=== PATIENT | female | born 1950 | race Caucasian/White ===

== ENCOUNTER 2019-12-03 08:48 | Outpatient (CLI) | payer MEDICARE, OTHER, SELFPAY ==
--- NOTE | 2019-12-03 08:55 | MM_ITS ---
WS: [id number] BILATERAL DIGITAL SCREENING MAMMOGRAM WITH CAD CLINICAL INFORMATION: SCREENING HISTORY: Screening mammogram. No current complaints. COMPARISON: TECHNIQUE: Bilateral CC and MLO views. FINDINGS: Fatty-replaced breasts bilaterally. No suspicious focal mass, asymmetry, calcifications, or performance architect ural distortion. No evidence of malignancy. Stable incidental intramammary lymph nodes. MM/[place] [id number] IMPRESSION: BI-RADS: 2-Benign FOLLOW UP: 1 Year Follow-up Recommend return to annual screening mammography.
== END 2019-12-03 08:49 | disposition home or self-care (01) ==
LOC: RADSHAW 08:53
PROVIDERS: PCP Internal Medicine; Visit Provider Internal Medicine
DX: Z12.31 Encounter for screening mammogram for malignant neoplasm of breast (principal)
CPT/HCPCS: 77067

== ENCOUNTER 2022-03-06 20:34 | Emergency (ER) | payer MEDICARE, OTHER, SELFPAY ==
[2022-03-06 20:40] VITALS: BP 182/124; PULSE 97; RESP 18; TEMP 36.5; O2SAT 98; BMI 39.6
[2022-03-06 21:34] VITALS: BP 182/124; PULSE 97; RESP 18; O2SAT 98
--- NOTE | 2022-03-06 21:52 | W.ED.WOUNDLC ---
HPI - Wound/Laceration General: Chief Complaint: Wound/Laceration Stated Complaint: Right hand finger lac Time Seen by Provider: 03/06/22 21:32 History of Present Illness: Patient is a 71-year-old female comes to the ED with right finger laceration. Injury occurred just prior to arrival. She states that she caught her third finger on right hand and storm door causing laceration. Denies any smash or crush injury to finger. Patient is on blood thinners and had trouble getting bleeding controlled. She has had tetanus within the last 5 years. Associated symptoms: Denies chills, fever(s), nausea or vomiting Review of Systems Const: Denies: fever(s), chills or fatigue Eyes: Denies: change in vision or eye discomfort ENMT: Denies: throat pain, odynophagia, nasal discharge or nasal congestion Card: Denies: chest pain, palpitations, edema, swelling of feet/ankles, dyspnea on exertion or orthopnea Resp: Denies: dyspnea, productive cough or non-productive cough GI: Denies: abdominal pain, nausea, vomiting, diarrhea, constipation or hematochezia : Denies: flank pain, dysuria or hematuria Musc: Denies: neck pain, back pain or extremity swelling Skin/Breast: Reports: new lesions (Small flap-like laceration on right hand third digit); Denies: rash Neuro: Denies: headache(s), numbness in extremities or weakness in extremities PFS ED PFSH: Medical History Atrial fibrillation Essential hypertension Surgical History S/P cholecystectomy Physical Exam Const: COMMON NORMALS: no acute distress, patient oriented x3 and alert GENERAL APPEARANCE: cooperative and comfortable HENMT: COMMON NORMALS: normocephalic HEAD & SCALP: normocephalic MOUTH: Normal oral and palatal mucosa present THROAT: posterior oropharynx normal and uvula midline Neck/C-Spine: COMMON NORMALS: supple GENERAL: Yes normal visual inspection Resp: COMMON NORMALS: normal respiratory effort, No retractions, No use of accessory muscles and clear to auscultation bilaterally AUSCULTATION: clear to auscultation bilaterally Cardio: COMMON NORMALS: regular rate, regular rhythm, S1 normal heart sound present, S2 normal heart sound present, No gallops present (Cardio), No clicks present (Cardio), No murmurs present (Cardio) and Peripheral pulses 2+ throughout RATE: regular rate RHYTHM: regular rhythm HEART SOUNDS: S1 normal heart sound present and S2 normal heart sound present PERIPHERAL PULSES: Peripheral pulses 2+ throughout GI: COMMON NORMALS: Normal to inspection, nondistended, normoactive bowel sounds present, Soft to palpation, non-tender and no masses PALPATION: Yes Soft to palpation : COMMON NORMALS: Yes no CVA tenderness BLADDER/KIDNEY EXAM: Yes no CVA tenderness Back/Pelvis: COMMON NORMALS: no CVA tenderness Extremity: NARRATIVE EXTREMITY EXAM: Right hand?third digit. Distal pad 1 cm superficial flap-like laceration. No nailbed or nail damage noted. Neuro: COMMON NORMALS: patient oriented x3 SENSORIUM/ORIENTATION: Yes alert GAIT: Yes Normal gait present Skin: GENERAL SKIN EXAM: dry skin Procedures Laceration Laceration 1: Site: hand (Third digit) Side (If applicable): right Size (cm): 1 Description: flap and clean Depth: simple, single layer Pre-repair: irrigated extensively (Irrigated extensively with normal saline) Skin layer closed with: other (Dermabond) Technique: other (Dermabond) Course Vital Signs: Vital signs: Vital Signs Temperature 97.7 F 03/06/22 20:40 Pulse Rate 95 03/06/22 22:30 Respiratory Rate 18 03/06/22 22:30 Blood Pressure 178/100 03/06/22 22:30 Pulse Oximetry 98 03/06/22 21:34 Oxygen Delivery Me thod 03/06/22 21:34 MDM - Wound/Laceration Medical Decision Making pt is a 71-year-old female comes to the ED with flap-like laceration to distal pad of third digit on right hand. Bleeding is controlled. Finger was irrigated with normal saline and then Dermabond was used to close laceration. Patient tolerated procedure well. She was stable for discharge home and told to follow-up with PCP in the next week for reevaluation. She was instructed on how to care for laceration site. Patient understood and agreed with plan. Discharge Plan Discharge Patient Disposition: Home Clinical Impression: Finger laceration Qualifiers: Encounter type: initial encounter Finger: unspecified finger Damage to nail status: without damage Foreign body presence: without foreign body Laterality: right Qualified Code(s): S61.219A - Laceration without foreign body of unspecified finger without damage to nail, initial encounter Condition: Stable Prescriptions: No Action atorvastatin 10 mg tablet 10 mg PO QDAY omeprazole 20 mg tablet,delayed release (DR/EC) 20 mg PO QDAY Eliquis 5 mg tablet 5 mg PO BID metoprolol tartrate 50 mg tablet 25 mg PO BID ibuprofen [IBU-200] 200 mg tablet 200 mg PO Q6H PRN Discharge Orders: Discharge ED (Routine); Ordered 03/06/22 Ordered By: Fred Farris Referrals: Nic Lyn DO [Primary Care Provider] - Discharge Diet: Regular Discharge Activity: Limit activity as instructed Patient Instructions: Finger Laceration (ED) Activity Restrictions/Additional Instructions: Keep laceration site clean and dry. Clean daily with soap and water and then apply thin layer of triple antibiotic ointment on it and cover with bandage. Watch for signs of infection such as redness, warmth, increased tenderness and puslike drainage. If you see the signs of infection return to the ED, urgent care or PCP for reevaluation. call your PCP to schedule a follow-up appointment for reevaluation in about 7-10 days. Continue taking all home meds. Follow discharge plans as discussed. You can return to the ED if symptoms worsen. Coding Level of Care Code ED Microfilm Machine Operator for Manny Ortiz Exam Comprehensive
[2022-03-06 22:30] VITALS: BP 178/100; PULSE 95; RESP 18
== END 2022-03-06 22:32 | disposition home or self-care (01) ==
PROVIDERS: Emergency Provider Physician Assistant; PCP Internal Medicine
DX: S61.212A Laceration without foreign body of right middle finger without damage to nail, initial encounter (principal); Z79.01 Long term (current) use of anticoagulants; I10 Essential (primary) hypertension; W23.0XXA Caught, crushed, jammed, or pinched between moving objects, initial encounter
CPT/HCPCS: 12001; 99282

== ENCOUNTER 2022-10-14 17:46 | Emergency (ER) | payer MEDICARE, OTHER, SELFPAY ==
[2022-10-14 17:51] VITALS: BP 130/96; PULSE 135; RESP 16; TEMP 36.7; O2SAT 94
--- NOTE | 2022-10-14 18:07 | XRR_ITS ---
PROCEDURE INFORMATION: Exam: XR Left Knee Exam date and time: 10/14/2022 6:24 PM Age: 72 years old Clinical indication: Pain; Knee; Left; Additional info: Pain S/P fall TECHNIQUE: Imaging protocol: Radiologic exam of the left knee. Views: 3 views. COMPARISON: No relevant prior studies available. FINDINGS: Bones/joints: Intact left total knee arthroplasty noted in expected alignment. Negative for fracture. Soft tissues: Normal. XR/XR knee LT 3V* [id number] IMPRESSION: No acute findings.
--- NOTE | 2022-10-14 18:07 | XRR_ITS ---
PROCEDURE INFORMATION: Exam: XR Thoracic Spine Exam date and time: 10/14/2022 6:28 PM Age: 72 years old Clinical indication: Pain in thoracic spine; Additional info: Pain S/P fall TECHNIQUE: Imaging protocol: Radiologic exam of the thoracic spine. Views: 3 views. COMPARISON: CR XR chest 1V [id number] 01/30/2016 11:40 AM FINDINGS: Bones/joints: No acute fracture. Normal alignment. Soft tissues: Unremarkable. Heart/Mediastinum: Hiatal hernia noted. XR/XR thoracic spine 3V* [id number] IMPRESSION: No acute findings.
--- NOTE | 2022-10-14 18:07 | XRR_ITS ---
PROCEDURE INFORMATION: Exam: XR Right Finger(s) Exam date and time: 10/14/2022 6:18 PM Age: 72 years old Clinical indication: Pain; Finger(s); Right; Additional info: Pain and swelling index finger S/P fall TECHNIQUE: Imaging protocol: Radiologic exam of the right fingers. Views: Minimum 2 views. COMPARISON: No relevant prior studies available. FINDINGS: Bones/joints: Osseous structures are intact. Negative for fracture. Soft tissues: Soft tissue swelling around the 2nd digit. XR/XR finger RT min 2V [id number] IMPRESSION: No acute findings.
--- NOTE | 2022-10-14 18:07 | XRR_ITS ---
PROCEDURE INFORMATION: Exam: XR Right Tibia and Fibula Exam date and time: 10/14/2022 6:18 PM Age: 72 years old Clinical indication: Pain; Lower leg; Right; Additional info: Pain S/P fall TECHNIQUE: Imaging protocol: Radiologic exam of the right tibia and fibula. Views: 2 views. COMPARISON: No relevant prior studies available. FINDINGS: Bones/joints: Tibia and fibula are intact. Negative for fracture. Soft tissues: Normal. XR/XR tibia fibula RT 2V [id number] IMPRESSION: No acute findings.
--- NOTE | 2022-10-14 18:07 | XRR_ITS ---
PROCEDURE INFORMATION: Exam: XR Right Knee Exam date and time: 10/14/2022 6:22 PM Age: 72 years old Clinical indication: Pain; Knee; Right; Prior surgery; Surgery date: 6+ months; Surgery type: Tka; Additional info: Pain S/P fall TECHNIQUE: Imaging protocol: Radiologic exam of the right knee. Views: 3 views. COMPARISON: CR (LOW EXM, ) 10/14/2022 6:18 PM FINDINGS: Bones/joints: Intact right total knee arthroplasty noted in expected alignment. Negative for fracture. Soft tissues: Normal. XR/XR knee RT 3V* [id number] IMPRESSION: No acute findings.
[2022-10-14 18:08] VITALS: BP 154/106; PULSE 132; RESP 19; O2SAT 93
[2022-10-14] MEDS: metoprolol tartrate 25 mg Tablet PO (18:14)
[2022-10-14 18:30] VITALS: BP 169/121; PULSE 131; RESP 16; O2SAT 95
--- NOTE | 2022-10-14 19:22 | ED_ITS ---
HPI - Fall General: Chief Complaint: Fall Stated Complaint: fall Time Seen by Provider: 10/14/22 18:00 History of Present Illness: Patient is in today after a fall. She reports that she was walking tripped over a rug fell mostly onto her right side on the floor. She reports that she then was able to crawl to a chair and help herself up. She denies hitting her head. She denies loss of consciousness. She states that she hurts all over but mostly her right index finger, both knees, mid back. She states that her right index finger was deformed and she popped it back in place. She states that she has a history of bilateral knee replacements with a neha in her right leg. She states that she does have a history of A-fib and is on blood thinners but did not hit her head. She reports that she is due for her evening metoprolol dose and that is why her heart rate is a little bit high Associated symptoms-after fall: Denies abdominal pain, chest pain, confusion, headache(s) or vertigo Review of Systems Const: Denies: fever(s) or chills Card: Reports: irregular heart rhythm (History of A-fib); Denies: chest pain or palpitations Resp: Denies: dyspnea, productive cough or non-productive cough GI: Denies: abdominal pain, nausea or vomiting : Denies: flank pain, difficulty voiding or dysuria Musc: Reports: back pain, extremity pain and joint pain Neuro: Denies: headache(s), numbness in extremities, weakness in extremities, lack of coordination, dizziness, vertigo or confusion [facility] ED PFSH: Medical History Atrial fibrillation Essential hypertension Surgical History S/P cholecystectomy Physical Exam Const: COMMON NORMALS: patient oriented x3 OTHER: Patient is in no acute distress sitting in the bed. Eye: COMMON NORMALS: Equal, round and reactive pupils present, EOMs intact bilaterally and conjunctivae normal CONJUNCTIVA: Yes conjunctivae normal PUPIL: Yes Equal, round and reactive pupils present Neck/C-Spine: COMMON NORMALS: full ROM, no lymphadenopathy, supple and no JVD Resp: COMMON NORMALS: normal respiratory effort, No use of accessory muscles and clear to auscultation bilaterally AUSCULTATION: clear to auscultation bilaterally Cardio: COMMON NORMALS: no JVD RATE: tachycardic RHYTHM: abnormal rhythm irregularly irregular GI: COMMON NORMALS: Normal to inspection, nondistended, normoactive bowel sounds present, Soft to palpation, non-tender, No hepatosplenomegaly present and no masses PALPATION: Yes Soft to palpation and Yes No hepatosplenomegaly present : COMMON NORMALS: Yes no CVA tenderness BLADDER/KIDNEY EXAM: Yes no CVA tenderness Back/Pelvis: COMMON NORMALS: no CVA tenderness THORACIC SPINE/UPPER BACK: Yes normal to inspection, Yes thoracic ROM normal and Yes paraspinal muscle tenderness Thoracic paraspinal muscle tenderness: right Extremity: NARRATIVE EXTREMITY EXAM: Right lower extremity lateral calf there is some swelling noted. Palpation of this region is consistent with a hematoma. Patient reports that that is new since the fall just prior to arrival. She denies that she had that swelling or pain prior to the fall. Neuro: COMMON NORMALS: patient oriented x3, CN's II-XII intact bilaterally, moves all extremities, no focal motor deficits and no sensory deficits noted Course Vital Signs: Vital signs: Vital Signs Temperature 98.1 F 10/14/22 17:51 Pulse Rate 131 H 10/14/22 18:30 Respiratory Rate 16 10/14/22 18:30 Blood Pressure 169/121 10/14/22 18:30 Pulse Oximetry 95 10/14/22 18:30 Oxygen Delivery Me thod Room Air 10/14/22 18:30 MDM - Fall Medical Decision Making Patient is in after a fall. She denies hitting her head. She is on blood thinning medications. X-ray of her finger, bilateral knees, right tib-fib, thoracic spine all are negative for any acute findings. We will go ahead and splint the patient's finger to provide comfort and stability for the next couple of days. Encouraged her to treat with conservative measures at home including ice, rest, elevation. Patient's heart rate was irregular and elevated in ER today. She denies feeling any chest pain or abnormalities. She states that she is due for her metoprolol when she arrived here. Her metoprolol dose was administered here. Discharge patient home in stable condition. Advised her to follow-up with her primary care provider. Return to the ER for any new or worsening symptoms. Lab Data Radiology Impressions Finger X-Ray 10/14/22 18:07 IMPRESSION: No acute findings. Knee X-Ray 10/14/22 18:07 IMPRESSION: No acute findings. Thoracic Spine X-Ray 10/14/22 18:07 IMPRESSION: No acute findings. Tibia/Fibula X-Ray 10/14/22 18:07 IMPRESSION: No acute findings. Discharge Plan Discharge Patient Disposition: Home Clinical Impression: Fall Qualifiers: Encounter type: initial encounter Qualified Code(s): W19.XXXA - Unspecified fall, initial encounter Contusion of lower leg, right Qualifiers: Encounter type: initial encounter Qualified Code(s): S80.11XA - Contusion of right lower leg, initial encounter Contusion of finger Qualifiers: Encounter type: initial encounter Finger: index finger Damage to nail status: without damage Laterality: right Qualified Code(s): S60.021A - Contusion of right index finger without damage to nail, initial encounter Condition: Stable Prescriptions: No Action atorvastatin 10 mg tablet 10 mg PO QDAY omeprazole 20 mg tablet,delayed release (DR/EC) 20 mg PO QDAY Eliquis 5 mg tablet 5 mg PO BID metoprolol tartrate 50 mg tablet 25 mg PO BID ibuprofen [IBU-200] 200 mg tablet 200 mg PO Q6H PRN Discharge Orders: Discharge ED (Routine); Ordered 10/14/22 Ordered By: Kary Lewis Referrals: Nic Lyn DO [Primary Care Provider] - Discharge Diet: Usual diet Discharge Activity: Increase activity as tolerated Patient Instructions: Knee Pain (ED), Fall Prevention Activity Restrictions/Additional Instructions: I do not see any acute fractures on the x-rays taken today. Still awaiting radiologist review. May utilize finger splint for the next few days to provide extra support and comfort for the finger. Ice, rest, elevate knees and also hand. Follow-up with primary care provider. Return to the ER as needed for new or worsening symptoms. You did have your evening dose of metoprolol tonight so do not take an additional 1 when you get home. You still need all other evening medicines Coding Level of Care Code ED Drill Punch Operator for Manny Ortiz
[2022-10-14 19:27] VITALS: PULSE 115; O2SAT 96
== END 2022-10-14 19:29 | disposition home or self-care (01) ==
PROVIDERS: Emergency Provider Nurse Practitioner Family; PCP Internal Medicine
DX: S80.11XA Contusion of right lower leg, initial encounter (principal); S60.021A Contusion of right index finger without damage to nail, initial encounter; Z79.01 Long term (current) use of anticoagulants; I10 Essential (primary) hypertension; W18.09XA Striking against other object with subsequent fall, initial encounter
CPT/HCPCS: 72072; 73140; 73562; 73590; 99284

== ENCOUNTER → 2023-09-27 08:01 | Outpatient (BNVA) | payer MEDICARE, SELFPAY | PROVIDERS: PCP Internal Medicine; Visit Provider Nurse Practitioner Family | DX: L57.0 Actinic keratosis (principal); L82.1 Other seborrheic keratosis; D22.5 Melanocytic nevi of trunk; L81.4 Other melanin hyperpigmentation; L57.8 Other skin changes due to chronic exposure to nonionizing radiation | CPT/HCPCS: 99204 ==

== ENCOUNTER → 2023-10-11 08:17 | Outpatient (BNVA) | payer MEDICARE, SELFPAY | PROVIDERS: PCP Internal Medicine; Visit Provider Nurse Practitioner Family | DX: L57.0 Actinic keratosis (principal); L82.1 Other seborrheic keratosis; D22.5 Melanocytic nevi of trunk; L81.4 Other melanin hyperpigmentation; L57.8 Other skin changes due to chronic exposure to nonionizing radiation | CPT/HCPCS: 17000; 17110; 99213 ==

== ENCOUNTER 2024-05-30 07:37 | Emergency (ER) | payer MEDICARE, SELFPAY ==
[2024-05-30 07:46] VITALS: BP 139/80; PULSE 119; RESP 16; TEMP 36.7; O2SAT 95; BMI 39.6
[2024-05-30] MEDS: tetanus-dipt-pertussis 0.5 mL SDV IM (08:42)
--- NOTE | 2024-05-30 08:43 | ED_ITS ---
HPI - Burn/Smoke Inhalation General: Chief complaint: Burn/Smoke Inhalation Stated complaint: chemical burn Time Seen by Provider: 05/30/24 07:42 History of Present Illness: 74-year-old female presents emergency ro om with swelling of her forehead and her scalp and on the left upper eyelid. She had a reaction to some hair product used to give her perm. She was seen earlier in the week started on steroids that she still has some discomfort in the eye. She done a difficulty breathing Associated symptoms: Deny chest pain, fever(s) or neck pain Related Data Home Medications Medication Instructions Recorded Confirmed apixaban 5 mg tablet (Eliquis) 5 mg PO BID 06/20/19 07/15/23 atorvastatin 10 mg tablet 10 mg PO QDAY 06/20/19 07/15/23 ibuprofen 200 mg tablet (IBU-200) 200 mg PO Q6H PRN 06/20/19 07/15/23 metoprolol tartrate 50 mg tablet 25 mg PO BID 06/20/19 07/15/23 omeprazole 20 mg tablet,delayed 20 mg PO QDAY 06/20/19 07/15/23 release cholecalciferol (vitamin D3) 25 25 mcg PO DAILY 07/15/23 07/15/23 mcg (1,000 unit) capsule Previous Rx's Medication Instructions Recorded benzonatate 100 mg capsule 100 mg PO TID PRN cough #20 caps 07/15/23 loratadine 10 mg tablet 10 mg PO DAILY PRN post nasal drip 07/15/23 30 days #30 tabs cetirizine 10 mg tablet 10 mg PO BID #30 tabs 05/30/24 ketorolac 0.5 % eye drops 1 drp ophthalmic (eye) Q6H 5 days 05/30/24 #10 mL olopatadine 0.1 % eye drops 1 drp ophthalmic (eye) BID 10 days 05/30/24 (Pataday Twice Daily Relief) #5 mL Allergies Allergy/AdvReac Type Severity Reaction Status Date / Time codeine Allergy Unknown Unknown Unverified 07/15/23 09:36 Review of Systems Const: Denies: fever(s) or chills Card: Denies: chest pain Resp: Denies: dyspnea GI: Denies: abdominal pain : Denies: dysuria, urinary frequency or urinary urgency Musc: Denies: neck pain or back pain Skin/Breast: Denies: rash [facility] ED PFSH: Medical History Nasal sinus congestion Hx pulmonary embolism Multinodular thyroid Dyslipidemia Cough Atrial fibrillation Essential hypertension Surgical History S/P tonsillectomy S/P meniscectomy S/P cholecystectomy Physical Exam Const: COMMON NORMALS: no acute distress GENERAL APPEARANCE: cooperative and comfortable ORIENTATION/CONSCIOUSNESS: Yes awake, Yes oriented to person, Yes oriented to place and Yes oriented to time HENMT: COMMON NORMALS: normocephalic, atraumatic and hearing grossly normal bilaterally HEAD & SCALP: normocephalic and atraumatic Resp: COMMON NORMALS: normal respiratory effort, No retractions, No use of accessory muscles and clear to auscultation bilaterally AUSCULTATION: clear to auscultation bilaterally Cardio: COMMON NORMALS: regular rate, regular rhythm and No murmurs present (Cardio) RATE: regular rate RHYTHM: regular rhythm GI: COMMON NORMALS: Soft to palpation and No hepatosplenomegaly present AUSCULTATION: Yes normoactive bowel sounds PALPATION: Yes Soft to palpation, No Tenderness to palpation present (GI), No Guarding due to palpation present (GI) and Yes No hepatosplenomegaly present Extremity: COMMON NORMALS: normal to inspection, capillary refill normal, no clubbing, cyanosis or edema, no calf tenderness and no pedal edema Neuro: SENSORIUM/ORIENTATION: Yes oriented to person, Yes oriented to place and Yes oriented to time Skin: OTHER: Contact dermatitis rash rhythm scaling skin across the forehead left upper and lower eyelid and across the scalp none anywhere else on the body or extremity no vesicular changes mild erythema Course Vital Signs: Vital signs: Vital Signs Temperature 98.0 F 05/30/24 07:46 Pulse Rate 97 05/30/24 09:18 Respiratory Rate 16 05/30/24 07:46 Blood Pressure 158/82 05/30/24 09:18 Pulse Oximetry 98 05/30/24 09:18 Oxygen Delivery Me thod Room Air 05/30/24 07:46 MDM - Burn/Smoke Inhalation Medical Decision Making Continue steroid taper previously given start cetirizine 10 mg twice daily use olopatadine and ketorolac as needed in the eyes. If not improving follow-up with primary care No radiology studies performed this visit Discharge Plan Discharge Patient Disposition: Home Clinical Impression: Contact dermatitis Condition: Stable Prescriptions: New cetirizine 10 mg tablet 10 mg PO BID Qty: 30 0RF ketorolac 0.5 % drops 1 drp ophthalmic (eye) Q6H 5 Days Qty: 10 0RF olopatadine [Pataday Twice Daily Relief] 0.1 % drops 1 drp ophthalmic (eye) BID 10 Days Qty: 5 0RF Rx Instructions: separate doses by at least 6-8 hours No Action atorvastatin 10 mg tablet 10 mg PO QDAY omeprazole 20 mg tablet,delayed release (DR/EC) 20 mg PO QDAY Eliquis 5 mg tablet 5 mg PO BID metoprolol tartrate 50 mg tablet 25 mg PO BID ibuprofen [IBU-200] 200 mg tablet 200 mg PO Q6H PRN cholecalciferol (vitamin D3) 25 mcg (1,000 unit) capsule 25 mcg PO DAILY benzonatate 100 mg capsule 100 mg PO TID PRN (Reason: cough) Qty: 20 0RF loratadine 10 mg tablet 10 mg PO DAILY PRN (Reason: post nasal drip) 30 Days Qty: 30 0RF Discharge Orders: Discharge ED (Routine); Ordered 05/30/24 Ordered By: Dionisio Ahumada Referrals: Nic Lyn DO [Primary Care Provider] - Discharge Diet: Usual diet Discharge Activity: Resume usual activity Patient Instructions: Opioid Safety, Pain Management Activity Restrictions/Additional Instructions: Thank you for choosing [facility] for your healthcare needs today. It is very important that you follow up as instructed or that you return to the Emergency Department should you have concerns or if your condition changes or worsens in any way. You were seen in the emergency room for a contact dermatitis chemical irritant from hair product. Recommend you complete the steroid taper that you were given additionally recommended starting the cetirizine 1 tablet twice a day. You can use the ketorolac and the olopatadine drops as prescribed. If worsens or changes follow-up with your primary care doctor. Coding Level of Care Code ED Industrial Service Technician for Manny Ortiz
[2024-05-30 09:18] VITALS: BP 158/82; PULSE 97; O2SAT 98
== END 2024-05-30 09:24 | disposition home or self-care (01) ==
PROVIDERS: Emergency Provider Family Medicine; PCP Internal Medicine
DX: L25.9 Unspecified contact dermatitis, unspecified cause (principal); Z79.01 Long term (current) use of anticoagulants; E78.5 Hyperlipidemia, unspecified; I10 Essential (primary) hypertension
CPT/HCPCS: 90471; 90715; 99283

== ENCOUNTER 2024-12-04 16:12 | Emergency (ER) | payer MEDICARE, SELFPAY ==
[2024-12-04 16:15] VITALS: BP 150/90; PULSE 105; TEMP 36.7; O2SAT 99
--- OUTSIDE RECORDS SUMMARY | 2024-12-04 16:17 | XMS_ITS | Clinical Summary ---
Author Organization [facility] Address [address] [place] [address] Care Team Providers Care Hydraulic Mechanic Name Role Phone Nic Lyn DO Primary Care Provide r Allergies Active Allergy Reactions Criticality Noted Date Comments Codeine Rash,Itching High 08/25/2020 Medications metoprolol tartrate (LOPRESSOR) 50 mg tablet Take 50 mg by mouth 2 times daily. Active omeprazole (PriLOSEC) 20 mg Tablet, Delayed Release (E.C.) Take by mouth daily before breakfast. Active apixaban (Eliquis) 5 mg tablet Take by mouth 2 times daily. Active atorvastatin (LIPITOR) 10 mg tablet Take 10 mg by mouth daily. Active vit C/vit E ac/lut/copper/zi nc (PRESERVISION LUTEIN ORAL) Take 1 Tablet by mouth daily. Active docusate sodium (Colace) 100 mg capsule Take 1 Capsule (100 mg) by mouth 2 times daily. 60 Capsule 11/25/2020 Active tiZANidine (ZANAFLEX) 4 mg Tablet Take 1 Tablet (4 mg) by mouth every 6 hours as needed for Spasm. 30 Tablet 11/25/2020 Active oxyCODONE (ROXICODONE) 5 mg tabletIndication s:Status post total right knee replacement Take 1-2 Tablets (5-10 mg) by mouth every 4 hours as needed for Pain. Maximum of 6 per day. Max Daily Amount: 30 mg 42 Tablet 11/26/2020 1:27 PM CDT 11/26/2020 Active traMADoL (ULTRAM) 50 mg tabletIndication s:Status post total right knee replacement Take 1 tablet by mouth every 6 hours as needed for pain. Maximum of 4 per day. 28 Tablet 11/26/2020 Active Active Problems Problem Noted Date Diagnosed Date Preoperative general physical examination 2020 GERD (gastroesophageal reflux disease) Status post total right knee replacement - 202011/05/2020 AF (atrial fibrillation) 11/05/2020 History of pulmonary embolism 2015 11/05/2020 Overview (11/05/2020): Following knee surgery Essential hypertension 11/05/2020 Dyslipidemia 11/05/2020 Severe obesity (BMI 35.0-39.9) with comorbidity 11/05/2020 Personal history of DVT (deep vein thrombosis) 2 015 11/05/2020 Overview (11/05/2020): Following knee surgery Hyperkalemia 11/05/2020 Elevated serum creatinine 11/05/2020 Family History Medical History Relation Name Comments Diabetes Brother Healthy Daughter Heart Disease Father Hypertension Mother Healthy Son Relation Name Status Comments Brother Alive Daughter Alive Father Mother Alive Son Alive Social History Tobacco Use Types Packs/Day Years Used Date Smoking Tobacco: Never Smokeless Tobacco: Never Alcohol Use Standard Drinks/Week Comments Never 0 (1 standard drink = 0.6 oz pur e alcohol) Comments Unknown Sex and Gender Information Value Date Recorded Sex Assigned at Not on file 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 Gender Identity Not on file Sexual Orientation Not on file Last Filed Vital Signs Vital Sign Reading Time Taken Comments Blood Pressure 145/94 11/26/2020 1:44 PM CDT Pulse 89 11/26/2020 1:44 PM CDT Temperature 36.4 C (97.6 F) 11/26/2020 1:44 PM CDT Respiratory Rate 15 11/26/2020 1:44 PM CDT Oxygen Saturation 97% 11/26/2020 1:44 PM CDT Inhaled Oxygen Concentration - - Weight 105.2 kg (232 lb) 11/25/2020 9:00 AM CDT Height 160 cm (5' 3 ) 11/25/2020 9:00 AM CDT Body Mass Index 41.1 11/25/2020 9:00 AM CDT Plan of Treatment Health Maintenance Due Date Last Done Comments DTAP/TDAP/TD VACCINES (1 - Tdap) 1967 PNEUMOCOCCAL VACCINE 50+ YEARS (1 of 1 - PCV) 04/10/19 98 ZOSTER VACCINE (1 of 2) 1998 OSTEOPOROSIS SCREENING 2013 RSV VACCINE (60+ or ) (1 - 1-dose 75+ series) 2023 INFLUENZA VACCINE (#1) 2024 Medical Devices Implanted Type Area Wreath Maker Device Identifier Shelf Expiration Date Model / Serial / Lot Cement Palacos Mv Zirconium Dioxide St Lf Disp [id number] - [id number] Implanted:Qty: 1 on 11/25/2020 by Daniel Wilkinson MD at [facility] Cement Right: Knee [employer] [id number] 06/29/2022 [id number] / / [id number] Cement Palacos Mv Zirconium Dioxide St Lf Disp [id number] - [id number] Implanted:Qty: 1 on 11/25/2020 by Daniel Wilkinson MD at [facility] Cement Right: Knee [employer] [id number] 06/29/2022 [id number] / / [id number] Comp Tib Attune Rev [id number] 1512-14-050 - [id number] Implanted:Qty: 1 on 11/25/2020 by Daniel Wilkinson MD at [facility] Knee Right: Knee [employer] [id number] 07/27/2030 [id number] / / [id number] Comp Fem Attune Ps Sz 6n Rt Cmntd 1504-10-226 - [id number] Implanted:Qty: 1 on 11/25/2020 by Daniel Wilkinson MD at [facility] Knee Right: Knee [employer] [id number] 10/27/2030 [id number] / / [id number] Comp Tib Attune Rev Sz5 1506-40-005 - [id number] Implanted:Qty: 1 on 11/25/2020 by Daniel Wilkinson MD at [facility] Knee Right: Knee [employer] [id number] 07/28/2027 [id number] / / [id number] Insert Attune Fb Ps Sz6 6mm 1516-40-606 - [id number] Implanted:Qty: 1 on 11/25/2020 by Daniel Wilkinson MD at [facility] Knee Right: Knee [employer] [id number] 05/29/2025 [id number] / / [id number] Insurance [employer] (INTERNAL) [facility] Medicare Part B RX MEDIMPACT Member Subscriber Plan / Payer (Ef fective for All Dates) Name:Nina Dhaliwal Relation to Subscriber:Spouse Payer ID:Not on file Group ID:[id number] Type:RX Commercial Address: [address] Advance Directives For more information, please contact: [phone] * Full Code (Latest Code Status on File) Date Activated Date Inactivated Comments 11/25/2020 3:37 PM 11/26/2020 5:06 PM * Full Code Date Activated Date Inactivated Comments 11/25/2020 10:05 AM 11/25/2020 3:37 PM Care Teams Hydraulic Mechanic Relationship Specialty Start Date End Date Nic Lyn DO [address] [address] PCP - General Internal Medicine 11/05/20
--- OUTSIDE RECORDS SUMMARY | 2024-12-04 16:17 | XMS_ITS | Clinical Summary ---
Author Organization [facility] Address [address] [place] [address] Care Team Providers Care Front Office Java Developer Name Role Phone Nic Lyn Primary Care Provide r Allergies Active Allergy Reactions Criticality Noted Date Comments Codeine Rash,Itching High 08/25/2020 Medications cholecalciferol 1,250 mcg (50,000 unit) Capsule Take 1 Capsule (50,000 Units) by mouth every 7 days. 8 Capsule 12/04/2020 Active Miscellaneous Medical Supply Wheel Chair 1 Each 12/05/2020 Active atorvastatin (LIPITOR) 10 mg tablet Take 10 mg by mouth daily. Active apixaban (ELIQUIS) 5 mg tablet Take by mouth 2 times daily. Active metoprolol tartrate (LOPRESSOR) 50 mg tablet Take 50 mg by mouth 2 times daily. Active omeprazole (PriLOSEC) 10 mg Capsule, Delayed Release(E.C.) Take 10 mg by mouth daily. Active metoprolol tartrate (LOPRESSOR) 50 mg tablet Take 50 mg by mouth 2 times daily. 07/11/2019 Active atorvastatin (LIPITOR) 10 mg tablet Take 10 mg by mouth daily. 11/05/2020 Active apixaban (ELIQUIS) 5 mg tablet Take by mouth 2 times daily. 07/11/2019 Active vit C/E/cuperic/zin c/lutein (PRESERVISION LUTEIN ORAL) Take 1 Tablet by mouth daily. 11/05/2020 Active omeprazole (PriLOSEC) 20 mg Tablet, Delayed Release (E.C.) Take by mouth daily before breakfast. 07/11/2019 Active Active Problems Problem Noted Date Diagnosed Date Preoperative general physical examination 2020 GERD (gastroesophageal reflux disease) AF (atrial fibrillation) 11/05/2020 History of pulmonary embolism 2015 11/05/2020 Overview (11/26/2020): Following knee surgery Essential hypertension 11/05/2020 Dyslipidemia 11/05/2020 Severe obesity (BMI 35.0-39.9) with comorbidity 11/05/2020 Personal history of DVT (deep vein thrombosis) 2 015 11/05/2020 Overview (11/26/2020): Following knee surgery Hyperkalemia 11/05/2020 Elevated serum creatinine 11/05/2020 Status post total right knee replacement - 202011/05/2020 Family History Medical History Relation Name Comments Diabetes Brother Healthy Daughter Heart Disease Father Hypertension Mother Healthy Son Relation Name Status Comments Brother Alive Daughter Alive Father Mother Alive Son Alive Social History Tobacco Use Types Packs/Day Years Used Date Smoking Tobacco: Never Smokeless Tobacco: Never Tobacco Cessation:Counseling Given: Not Answered Alcohol Use Standard Drinks/Week Comments Never 0 (1 standard drink = 0.6 oz pur e alcohol) Comments Unknown Sex and Gender Information Value Date Recorded Sex Assigned at Not on file 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 Gender Identity Not on file Sexual Orientation Not on file Last Filed Vital Signs Vital Sign Reading Time Taken Comments Blood Pressure 112/47 12/03/2020 9:24 AM CDT Pulse 104 12/03/2020 9:24 AM CDT Temperature 36.4 C (97.6 F) 11/26/2020 1:44 PM CDT Respiratory Rate 15 11/26/2020 1:44 PM CDT Oxygen Saturation - - Inhaled Oxygen Concentration - - Weight 102.5 kg (226 lb) 03/08/2022 1:39 PM CDT Height 162.6 cm (5' 4 ) 03/08/2022 1:39 PM CDT Body Mass Index 38.79 03/08/2022 1:39 PM CDT Plan of Treatment Health Maintenance Due Date Last Done Comments DTAP/TDAP/TD VACCINES (1 - Tdap) 1967 PNEUMOCOCCAL VACCINE 50+ YEARS (1 of 1 - PCV) 04/10/19 98 ZOSTER VACCINE (1 of 2) 1998 OSTEOPOROSIS SCREENING 2013 RSV VACCINE (60+ or ) (1 - 1-dose 75+ series) 2023 INFLUENZA VACCINE (#1) 2024 Medical Devices Implanted Type Area Tablet Coater Device Identifier Shelf Expiration Date Model / Serial / Lot Cement Palacos Mv Zirconium Dioxide St Lf Disp [id number] - [id number] Implanted:Qty : 1 on 11/25/2020 by Daniel Wilkinson MD Cement Right: Knee [employer] [id number] 06/29/2022 [id number] / / [id number] Cement [employer] Mv Zirconium Dioxide St Lf Disp [id number] - [id number] Implanted:Qty : 1 on 11/25/2020 by Daniel Wilkinson MD Cement Right: Knee [employer] [id number] 06/29/2022 [id number] / / [id number] Comp Fem Attune Ps Sz 6n Rt Cmntd 1504-10-226 - [id number] Implanted:Qty : 1 on 11/25/2020 by Daniel Wilkinson MD Knee Right: Knee [employer] [id number] 10/27/2030 [id number] / / [id number] Comp Tib Attune Rev [id number] 1512-14-050 - [id number] Implanted:Qty : 1 on 11/25/2020 by Daniel Wilkinson MD Knee Right: Knee [employer] [id number] 07/27/2030 [id number] / / [id number] Comp Tib Attune Rev Sz5 1506-40-005 - [id number] Implanted:Qty : 1 on 11/25/2020 by Daniel Wilkinson MD Knee Right: Knee [employer] [id number] 07/28/2027 [id number] / / [id number] Insert Attune Fb Ps Sz6 6mm 1516-40-606 - [id number] Implanted:Qty : 1 on 11/25/2020 by Daniel Wilkinson MD Knee Right: Knee [employer] [id number] 05/29/2025 [id number] / / [id number] Insurance [facility] MEDIC[facility] * Guarantor: NINA DHALIWAL Account Type Relation to Patient Date of Phone Billing Address Personal/Family [address] [place] [address] RX [facility] Medicare Part B Care Teams Front Office Java Developer Relationship Specialty Start Date End Date Nic Lyn DO [address] [facility] [place] [address] PCP - General 11/05/20
--- NOTE | 2024-12-04 16:34 | W.ED.FEMALGU ---
Documented by User: Dionisio Ahumada DO 12/06/24 09:46 HPI - Female Genitourinary General: Chief complaint: Urogenital-Female Stated complaint: low rt abd pain Time Seen by Provider: 12/04/24 16:19 History of Present Illness: 74-year-old female presents emergency room complaining of right-sided flank pain/low back pain is been going on for last several hours she has had some dysuria as well she has not noticed any significant hematuria. She thinks she may have had a kidney stone based on what family numbers described to her she has not previously had kidney stones herself. No fever sweats chills no shortness of breath or cough. Associated symptoms: Deny abdominal pain Related Data Home Medications ?Medication ?Instructions ?Recorded ?Confirmed apixaban 5 mg tablet (Eliquis) 5 mg PO BID 06/20/19 07/15/23 atorvastatin 10 mg tablet 10 mg PO QDAY 06/20/19 07/15/23 ibuprofen 200 mg tablet (IBU-200) 200 mg PO Q6H PRN 06/20/19 07/15/23 metoprolol tartrate 50 mg tablet 25 mg PO BID 06/20/19 07/15/23 omeprazole 20 mg tablet,delayed 20 mg PO QDAY 06/20/19 07/15/23 release cholecalciferol (vitamin D3) 25 25 mcg PO DAILY 07/15/23 07/15/23 mcg (1,000 unit) capsule Previous Rx's ?Medication ?Instructions ?Recorded benzonatate 100 mg capsule 100 mg PO TID PRN cough #20 caps 07/15/23 loratadine 10 mg tablet 10 mg PO DAILY PRN post nasal drip 07/15/23 30 days #30 tabs cetirizine 10 mg tablet 10 mg PO BID #30 tabs 05/30/24 Allergies Allergy/AdvReac Type Severity Reaction Status Date / Time codeine Allergy Unknown Unknown Verified 12/04/24 16:23 Review of Systems Const: Denies: fever(s) or chills Card: Denies: chest pain Resp: Denies: dyspnea GI: Denies: abdominal pain : Reports: flank pain and dysuria; Denies: urinary frequency or urinary urgency Musc: Denies: neck pain or back pain Skin/Breast: Denies: rash PFSH ED PFSH: Medical History Nasal sinus congestion Hx pulmonary embolism Multinodular thyroid Dyslipidemia Cough Atrial fibrillation Essential hypertension Surgical History S/P tonsillectomy S/P meniscectomy S/P cholecystectomy Physical Exam Const: ORIENTATION/CONSCIOUSNESS: Yes awake, Yes oriented to person, Yes oriented to place and Yes oriented to time HENMT: COMMON NORMALS: normocephalic, atraumatic and hearing grossly normal bilaterally HEAD & SCALP: normocephalic and atraumatic Resp: COMMON NORMALS: normal respiratory effort, No retractions, No use of accessory muscles and clear to auscultation bilaterally AUSCULTATION: clear to auscultation bilaterally Cardio: COMMON NORMALS: regular rate, regular rhythm and No murmurs present (Cardio) RATE: regular rate RHYTHM: regular rhythm GI: COMMON NORMALS: Soft to palpation and No hepatosplenomegaly present AUSCULTATION: Yes normoactive bowel sounds PALPATION: Yes Soft to palpation, No Tenderness to palpation present (GI), No Guarding due to palpation present (GI) and Yes No hepatosplenomegaly present : BLADDER/KIDNEY EXAM: Yes CVA tenderness Back/Pelvis: GENERAL BACK: Yes CVA tenderness CVA tenderness: right Extremity: COMMON NORMALS: normal to inspection, capillary refill normal, no clubbing, cyanosis or edema, no calf tenderness and no pedal edema Neuro: SENSORIUM/ORIENTATION: Yes oriented to person, Yes oriented to place and Yes oriented to time Skin: COMMON NORMALS: no rashes or lesions noted GENERAL SKIN EXAM: no rashes or lesions noted Course Vital Signs: Vital signs: Vital Signs Temperature 98.1 F 12/04/24 16:15 Pulse Rate 99 12/04/24 19:21 Blood Pressure 157/105 12/04/24 19:21 Pulse Oximetry 98 12/04/24 19:21 Oxygen Delivery Me thod Room Air 12/04/24 16:15 MDM - Female Medical Decision Making Hematuria with no leukocytes in the urine. CT renal study ordered. Care signed out to Dr. Molina at change of shift. See final notes for diagnosis and disposition. Lab Data 12/04/24 16:44 12/04/24 16:44 Radiology Impressions Abdomen/Pelvis CT 12/04/24 17:56 IMPRESSION: 1. No acute intra-abdominal or pelvic process. 2. 3 mm nonobstructing right upper pole renal calculus. No other evidence of urolithiasis. 3. Other nonemergent findings above. COMMENTS: Consistent with the [employer]'s Incidental Findings Committee white paper (J Am Bernabe Radiol 2018): Any incidental renal lesion less than 1 cm or classified as too small to characterize, or any incidental cystic renal lesion characterized as simple-appearing, is likely benign. No follow-up imaging is recommended for these lesions per consensus recommendations based on imaging criteria. Laboratory Results WBC 8.42 10^3/uL (3.29-11.43) 12/04/24 16:44 RBC 4.46 10^6/uL (3.85-5.65) 12/04/24 16:44 Hgb 14.00 g/dL (11.27-16.99) 12/04/24 16:44 Hct 43.7 % (36-47) 12/04/24 16:44 MCV 98.0 fl (85-98) 12/04/24 16:44 MCH 31.4 pg (27-33) 12/04/24 16:44 MCHC 32.0 g/dL (30-55) 12/04/24 16:44 RDW 12.2 % (12.1-15.1) 12/04/24 16:44 Plt Count 208 10^3/cmm (157-399) 12/04/24 16:44 MPV 11.2 fL (7.4-10.4) H 12/04/24 16:44 Neut % (Auto) 79.3 % 12/04/24 16:44 Lymph % (Auto) 12.6 % 12/04/24 16:44 [place] % (Auto) 7.1 % 12/04/24 16:44 Eos % (Auto) 0.4 % 12/04/24 16:44 Baso % (Auto) 0.4 % 12/04/24 16:44 Neut # (Auto) 6.68 10^3/uL (1.8-7.7) 12/04/24 16:44 Lymph # (Auto) 1.1 10^3/uL (0.8-4.8) 12/04/24 16:44 [place] # (Auto) 0.6 10^3/uL (0.2-0.9) 12/04/24 16:44 Eos # (Auto) 0.0 10^3/uL (0.0-0.8) 12/04/24 16:44 Baso # (Auto) 0.0 10^3/uL (0.0-0.1) 12/04/24 16:44 Nucleated RBC % (auto) 0 % 12/04/24 16:44 Nucleated RBCs # 0.0 /100WBC 12/04/24 16:44 Sodium 141 mmol/L (136-145) 12/04/24 16:44 Potassium 4.0 mmol/L (3.5-5.1) 12/04/24 16:44 Chloride 105 mmol/L (98-107) 12/04/24 16:44 Carbon Dioxide 24 mmol/L (22-29) 12/04/24 16:44 Anion Gap 16.0 (5-19) 12/04/24 16:44 BUN 13 mg/dL (8-23) 12/04/24 16:44 Creatinine 0.9 mg/dL (0.5-0.9) 12/04/24 16:44 GFR Calculation Not Reportable 12/04/24 16:44 Glucose 139 mg/dL (65-115) H 12/04/24 16:44 Calculated Osmolality 294 mOsm/kg (285-295) 12/04/24 16:44 Calcium 9.3 mg/dL (8.5-10.5) 12/04/24 16:44 Total Bilirubin 0.7 mg/dL (0.15-1.2) 12/04/24 16:44 AST 18 U/L (0-32) 12/04/24 16:44 ALT 13 U/L (0-33) 12/04/24 16:44 Alkaline Phosphatase 127 U/L (35-105) H 12/04/24 16:44 Total Protein 6.5 g/dL (6.6-8.7) L 12/04/24 16:44 Albumin 3.9 g/dL (3.5-5.2) 12/04/24 16:44 Globulin 2.6 g/dL (1.3-4.6) 12/04/24 16:44 Lipase 34 U/L (13-60) 12/04/24 16:44 Urine Color Dark yellow (Yellow) A 12/04/24 17:19 Urine Appearance Cloudy (CLEAR) A 12/04/24 17:19 Urine pH 5.5 (5-7) 12/04/24 17:19 Ur Specific [place] 1.022 (1.005-1.030) 12/04/24 17:19 Urine Protein 1+ (Negative) A 12/04/24 17:19 Urine Glucose (UA) Negative (Normal) 12/04/24 17:19 Urine Ketones Trace (Negative) 12/04/24 17:19 Urine Blood 3+ (Negative) A 12/04/24 17:19 Urine Nitrate Negative (Negative) 12/04/24 17:19 Urine Bilirubin Negative (Negative) 12/04/24 17:19 Urine Urobilinogen 1.0 mg/dL (Negative) 12/04/24 17:19 Ur Leukocyte Esterase Negative (Negative) 12/04/24 17:19 Urine RBC >100 /hpf (0-2) H 12/04/24 17:19 Urine WBC 0-5 /hpf (0-5) 12/04/24 17:19 Ur Squamous Epith Cells 6-10 /hpf (0-5) 12/04/24 17:19 Amorphous Sediment Not Reportable 12/04/24 17:19 Urine Bacteria Trace /hpf (NONE) 12/04/24 17:19 Hyaline Casts 8.26 /lpf 12/04/24 17:19 Discharge Plan Discharge Patient Disposition: Home Clinical Impression: Hematuria, Acute flank pain Condition: Stable Prescriptions: No Action atorvastatin 10 mg tablet 10 mg PO QDAY omeprazole 20 mg tablet,delayed release (DR/EC) 20 mg PO QDAY Eliquis 5 mg tablet 5 mg PO BID metoprolol tartrate 50 mg tablet 25 mg PO BID ibuprofen [IBU-200] 200 mg tablet 200 mg PO Q6H PRN cholecalciferol (vitamin D3) 25 mcg (1,000 unit) capsule 25 mcg PO DAILY benzonatate 100 mg capsule 100 mg PO TID PRN (Reason: cough) Qty: 20 0RF loratadine 10 mg tablet 10 mg PO DAILY PRN (Reason: post nasal drip) 30 Days Qty: 30 0RF cetirizine 10 mg tablet 10 mg PO BID Qty: 30 0RF Discharge Orders: Discharge ED (Routine); Ordered 12/04/24 Ordered By: Vicente Molina Referrals: Ministerio Jeffries MD [Primary Care Provider, Family Practice] Patient Instructions: Kidney Stones, Patient Portal & David Instructions Print Language: Jamaican Coding Level of Care Code ED L[employer] T[employer] for Chg Fwd Documented by User: Vicente Molina MD 12/04/24 19:06 HPI - Female Genitourinary General: Chief complaint: Urogenital-Female Stated complaint: low rt abd pain Time Seen by Provider: 12/04/24 16:19 Related Data Home Medications ?Medication ?Instructions ?Recorded ?Confirmed apixaban 5 mg tablet (Eliquis) 5 mg PO BID 06/20/19 07/15/23 atorvastatin 10 mg tablet 10 mg PO QDAY 06/20/19 07/15/23 ibuprofen 200 mg tablet (IBU-200) 200 mg PO Q6H PRN 06/20/19 07/15/23 metoprolol tartrate 50 mg tablet 25 mg PO BID 06/20/19 07/15/23 omeprazole 20 mg tablet,delayed 20 mg PO QDAY 06/20/19 07/15/23 release cholecalciferol (vitamin D3) 25 25 mcg PO DAILY 07/15/23 07/15/23 mcg (1,000 unit) capsule Previous Rx's ?Medication ?Instructions ?Recorded benzonatate 100 mg capsule 100 mg PO TID PRN cough #20 caps 07/15/23 loratadine 10 mg tablet 10 mg PO DAILY PRN post nasal drip 07/15/23 30 days #30 tabs cetirizine 10 mg tablet 10 mg PO BID #30 tabs 05/30/24 Allergies Allergy/AdvReac Type Severity Reaction Status Date / Time codeine Allergy Unknown Unknown Verified 12/04/24 16:23 [facility] ED PFSH: Medical History Nasal sinus congestion Hx pulmonary embolism Multinodular thyroid Dyslipidemia Cough Atrial fibrillation Essential hypertension Surgical History S/P tonsillectomy S/P meniscectomy S/P cholecystectomy Course Vital Signs: Vital signs: Vital Signs Temperature 98.1 F 12/04/24 16:15 Pulse Rate 99 12/04/24 19:21 Blood Pressure 157/105 12/04/24 19:21 Pulse Oximetry 98 12/04/24 19:21 Oxygen Delivery Me thod Room Air 12/04/24 16:15 MDM - Female Medical Decision Making Hematuria with no leukocytes in the urine. CT renal study ordered. Care signed out to Dr. Molina at change of shift. See final notes for diagnosis and disposition. Signout from Dr. Ahumada at 6 PM. I spoke with the patient about her test results. Her CT shows no acute intra-abdominal or pelvic process. She does have a stone in her right kidney. Given her symptoms and her urine I suspect she passed a kidney stone. She is currently comfortable with no pain or complaints at this time. We discussed symptoms that should prompt immediate return to the emergency department. Will discharge home with precautions to return for worsening or changing symptoms. Lab Data 12/04/24 16:44 12/04/24 16:44 Radiology Impressions Abdomen/Pelvis CT 12/04/24 17:56 IMPRESSION: 1. No acute intra-abdominal or pelvic process. 2. 3 mm nonobstructing right upper pole renal calculus. No other evidence of urolithiasis. 3. Other nonemergent findings above. COMMENTS: Consistent with the [employer]'s Incidental Findings Committee white paper (J Am Bernabe Radiol 2018): Any incidental renal lesion less than 1 cm or classified as too small to characterize, or any incidental cystic renal lesion characterized as simple-appearing, is likely benign. No follow-up imaging is recommended for these lesions per consensus recommendations based on imaging criteria. Laboratory Results WBC 8.42 10^3/uL (3.29-11.43) 12/04/24 16:44 RBC 4.46 10^6/uL (3.85-5.65) 12/04/24 16:44 Hgb 14.00 g/dL (11.27-16.99) 12/04/24 16:44 Hct 43.7 % (36-47) 12/04/24 16:44 MCV 98.0 fl (85-98) 12/04/24 16:44 MCH 31.4 pg (27-33) 12/04/24 16:44 MCHC 32.0 g/dL (30-55) 12/04/24 16:44 RDW 12.2 % (12.1-15.1) 12/04/24 16:44 Plt Count 208 10^3/cmm (157-399) 12/04/24 16:44 MPV 11.2 fL (7.4-10.4) H 12/04/24 16:44 Neut % (Auto) 79.3 % 12/04/24 16:44 Lymph % (Auto) 12.6 % 12/04/24 16:44 [place] % (Auto) 7.1 % 12/04/24 16:44 Eos % (Auto) 0.4 % 12/04/24 16:44 Baso % (Auto) 0.4 % 12/04/24 16:44 Neut # (Auto) 6.68 10^3/uL (1.8-7.7) 12/04/24 16:44 Lymph # (Auto) 1.1 10^3/uL (0.8-4.8) 12/04/24 16:44 [place] # (Auto) 0.6 10^3/uL (0.2-0.9) 12/04/24 16:44 Eos # (Auto) 0.0 10^3/uL (0.0-0.8) 12/04/24 16:44 Baso # (Auto) 0.0 10^3/uL (0.0-0.1) 12/04/24 16:44 Nucleated RBC % (auto) 0 % 12/04/24 16:44 Nucleated RBCs # 0.0 /100WBC 12/04/24 16:44 Sodium 141 mmol/L (136-145) 12/04/24 16:44 Potassium 4.0 mmol/L (3.5-5.1) 12/04/24 16:44 Chloride 105 mmol/L (98-107) 12/04/24 16:44 Carbon Dioxide 24 mmol/L (22-29) 12/04/24 16:44 Anion Gap 16.0 (5-19) 12/04/24 16:44 BUN 13 mg/dL (8-23) 12/04/24 16:44 Creatinine 0.9 mg/dL (0.5-0.9) 12/04/24 16:44 GFR Calculation Not Reportable 12/04/24 16:44 Glucose 139 mg/dL (65-115) H 12/04/24 16:44 Calculated Osmolality 294 mOsm/kg (285-295) 12/04/24 16:44 Calcium 9.3 mg/dL (8.5-10.5) 12/04/24 16:44 Total Bilirubin 0.7 mg/dL (0.15-1.2) 12/04/24 16:44 AST 18 U/L (0-32) 12/04/24 16:44 ALT 13 U/L (0-33) 12/04/24 16:44 Alkaline Phosphatase 127 U/L (35-105) H 12/04/24 16:44 Total Protein 6.5 g/dL (6.6-8.7) L 12/04/24 16:44 Albumin 3.9 g/dL (3.5-5.2) 12/04/24 16:44 Globulin 2.6 g/dL (1.3-4.6) 12/04/24 16:44 Lipase 34 U/L (13-60) 12/04/24 16:44 Urine Color Dark yellow (Yellow) A 12/04/24 17:19 Urine Appearance Cloudy (CLEAR) A 12/04/24 17:19 Urine pH 5.5 (5-7) 12/04/24 17:19 Ur Specific [place] 1.022 (1.005-1.030) 12/04/24 17:19 Urine Protein 1+ (Negative) A 12/04/24 17:19 Urine Glucose (UA) Negative (Normal) 12/04/24 17:19 Urine Ketones Trace (Negative) 12/04/24 17: Urine Blood 3+ (Negative) A 12/04/24 17:19 Urine Nitrate Negative (Negative) 12/04/24 17:19 Urine Bilirubin Negative (Negative) 12/04/24 17:19 Urine Urobilinogen 1.0 mg/dL (Negative) 12/04/24 17:19 Ur Leukocyte Esterase Negative (Negative) 12/04/24 17:19 Urine RBC >100 /hpf (0-2) H 12/04/24 17:19 Urine WBC 0-5 /hpf (0-5) 12/04/24 17:19 Ur Squamous Epith Cells 6-10 /hpf (0-5) 12/04/24 17:19 Amorphous Sediment Not Reportable 12/04/24 17:19 Urine Bacteria Trace /hpf (NONE) 12/04/24 17:19 Hyaline Casts 8.26 /lpf 12/04/24 17:19 All radiology interpretation(s) finalized by discharge Discharge Plan Discharge Patient Disposition: Home Clinical Impression: Hematuria, Acute flank pain Condition: Stable Prescriptions: No Action atorvastatin 10 mg tablet 10 mg PO QDAY omeprazole 20 mg tablet,delayed release (DR/EC) 20 mg PO QDAY Eliquis 5 mg tablet 5 mg PO BID metoprolol tartrate 50 mg tablet 25 mg PO BID ibuprofen [IBU-200] 200 mg tablet 200 mg PO Q6H PRN cholecalciferol (vitamin D3) 25 mcg (1,000 unit) capsule 25 mcg PO DAILY benzonatate 100 mg capsule 100 mg PO TID PRN (Reason: cough) Qty: 20 0RF loratadine 10 mg tablet 10 mg PO DAILY PRN (Reason: post nasal drip) 30 Days Qty: 30 0RF cetirizine 10 mg tablet 10 mg PO BID Qty: 30 0RF Discharge Orders: Discharge ED (Routine); Ordered 12/04/24 Ordered By: Vicente Molina Referrals: Ministerio Jeffries MD [Primary Care Provider, Family Practice] Patient Instructions: Kidney Stones, Patient Portal & David Instructions Print Language: Jamaican Coding Level of Care Code ED L[employer] T[employer]er for Chg Diana
[2024-12-04 16:58] VITALS: BP 134/100; PULSE 97; O2SAT 95
[2024-12-04 17:03] LABS: Hematocrit 43.7 % (36-47); Hemoglobin 14.00 g/dL (11.27-16.99); Mean Corpuscular HGB Conc 32.0 g/dL (30-55); Mean Corpuscular Hemoglobin 31.4 pg (27-33); Mean Corpuscular Volume 98.0 fl (85-98); Nucleated Red Blood Cells % 0 %; Platelet Count 208 10^3/cmm (157-399); Red Blood Count 4.46 10^6/uL (3.85-5.65); White Blood Count 8.42 10^3/uL (3.29-11.43)
[2024-12-04 17:21] LABS: Alanine Aminotransferase 13 U/L (0-33); Albumin Level 3.9 g/dL (3.5-5.2); Alkaline Phosphatase 127 U/L (35-105); Aspartate Amino Transferase 18 U/L (0-32); Blood Urea Nitrogen 13 mg/dL (8-23); Calcium 9.3 mg/dL (8.5-10.5); Carbon Dioxide 24 mmol/L (22-29); Chloride 105 mmol/L (98-107); Globulin 2.6 g/dL (1.3-4.6); Glucose 139 mg/dL (65-115); Lipase 34 U/L (13-60); Osmolality Calculated 294 mOsm/kg (285-295); Sodium 141 mmol/L (136-145); Total Protein 6.5 g/dL (6.6-8.7)
[2024-12-04 17:26] LABS: Anion Gap 16.0 (5-19); Potassium 4.0 mmol/L (3.5-5.1)
[2024-12-04 17:32] LABS: Glucose Urine UA Negative (Normal); Nitrate Urine Negative (Negative); Specific Gravity, Urine 1.022 (1.005-1.030)
[2024-12-04 17:35] LABS: Add Urine Microscopic? YES
--- NOTE | 2024-12-04 17:56 | CTR_ITS ---
PROCEDURE INFORMATION: Exam: CT Abdomen And Pelvis Without Contrast Exam date and time: 12/04/2024 6:07 PM Age: 74 years old Clinical indication: Other: Hematuria; Prior surgery; Surgery date: 6+ months; Surgery type: Gb TECHNIQUE: Imaging protocol: Computed tomography of the abdomen and pelvis without contrast. Radiation optimization: All CT scans at this facility use at least one of these dose optimization techniques: automated exposure control; mA and/or kV adjustment per patient size (includes targeted exams where dose is matched to clinical indication); or iterative reconstruction. COMPARISON: CR XR thoracic spine 3V* [id number] 10/14/2022 6:28 PM RADIATION DOSE METRICS: Total DLP (mGy-cm): 870.21 FINDINGS: Lungs: Basilar atelectasis or scarring. Heart: Heart size is within normal limits. There is no pericardial effusion or pericardial thickening. Liver: The liver is normal. No hepatic masses are identified. Gallbladder and biliary ducts: The gallbladder is surgically absent. There is no ductal dilatation. Pancreas: The pancreas is normal. Spleen: The spleen is normal. Adrenal glands: The adrenal glands are normal. Kidneys and ureters: 3 mm nonobstructing right upper pole renal calcification. No hydronephrosis. Innumerable bilateral peripelvic cysts. Stomach and bowel: Large hiatal hernia containing the entire stomach. There is no large or small bowel obstruction. There is no evidence of bowel wall thickening. Appendix: A normal appendix is identified. Intraperitoneal space: No inflammatory changes are identified. There is no free fluid or fluid collection seen. There is no pneumoperitoneum. Vasculature: Atherosclerotic calcifications of the aorta are present. No aneurysm is identified. Lymph nodes: No enlarged lymph nodes are identified. Urinary bladder: The bladder is decompressed and collapsed. No abnormality identified. Reproductive: Multiple uterine masses most consistent with fibroids. Nonspecific 1 cm low-density lesion in the right adnexa possibly parapelvic cyst or other benign entity. Bones/joints: No acute osseous abnormalities are seen. Chronic appearing multilevel vertebral body height loss. Soft tissues: Mild diastasis of the anterior abdominal wall. CT/CT kidney stone [id number] IMPRESSION: 1. No acute intra-abdominal or pelvic process. 2. 3 mm nonobstructing right upper pole renal calculus. No other evidence of urolithiasis. 3. Other nonemergent findings above. COMMENTS: Consistent with the [employer] [employer]'s Incidental Findings Committee white paper (J Am Bernabe Radiol 2018): Any incidental renal lesion less than 1 cm or classified as too small to characterize, or any incidental cystic renal lesion characterized as simple-appearing, is likely benign. No follow-up imaging is recommended for these lesions per consensus recommendations based on imaging criteria.
[2024-12-04 18:00] VITALS: BP 175/107; PULSE 91; O2SAT 97
[2024-12-04 19:21] VITALS: BP 157/105; PULSE 99; O2SAT 98
== END 2024-12-04 19:22 | disposition home or self-care (01) ==
PROVIDERS: Emergency Medicine; Emergency Provider Family Medicine; PCP Family Medicine
DX: R31.9 Hematuria, unspecified (principal); R10.9 Unspecified abdominal pain; Z79.01 Long term (current) use of anticoagulants; I10 Essential (primary) hypertension; E78.5 Hyperlipidemia, unspecified
CPT/HCPCS: 74176; 80053; 81001; 83690; 85025; 87086; 99284